=== PATIENT | female | born 1975 | race Caucasian/White ===

== ENCOUNTER → 2017-06-22 | Outpatient (CLI) | payer BC, OTHER ==
[~2017-06-22] MED LIST: None at this Time
[2017-06-22 09:06] LABS: HEMATOCRIT 47.2 % (34.6-47.8); HEMOGLOBIN 16.4 g/dL (11.7-16.4); WHITE BLOOD COUNT 7.6 x10^3/uL (3.4-10)
== END | disposition home or self-care (01) ==
LOC: STAR 08:03
PROVIDERS: ATTEND Specialist
DX: N94.5 Secondary dysmenorrhea (principal); Z80.49 Family history of malignant neoplasm of other genital organs
CPT/HCPCS: 36415; 84703; 85025

== ENCOUNTER 2017-06-28 05:41 | Day surgery (SDC) | payer BC, OTHER ==
[~2017-06-28] VITALS: Ht 170.2 cm; Wt 65.8 kg
[2017-06-28] MEDS ORDERED: LACTATED RINGERS 1,000 ML IV SCH (06:23)
[2017-06-28 06:25] VITALS: BP 114/78
[2017-06-28] MEDS ORDERED: LIDOCAINE 1%, 2ML SQ PRN (06:30)
[2017-06-28 06:31] LABS: HCG UR LOT HCG706132
[2017-06-28 06:45] LABS: HCG UR OBC PASS
[2017-06-28] MEDS ORDERED: BUPIVACAINE/PF 0.25% ONE (07:02)
[2017-06-28] MEDS ORDERED: ACETAMINOPHEN 500 MG TABLET ONE (07:14)
[2017-06-28] MEDS ORDERED: MIDAZOLAM 1 MG/ML, 2ML ONE ×2 (07:14→07:18)
[2017-06-28] MEDS ORDERED: SCOPOLAMINE PATCH, 1.5MG PATCH.TD72 TD ONE ×2 (07:14)
[2017-06-28] MEDS ORDERED: GABAPENTIN 300 MG CAPSULE ONE (07:14)
[2017-06-28] MEDS ORDERED: FLUORESCEIN SODIUM 500 MG/5 ML ONE (07:16)
[2017-06-28] MEDS ORDERED: ONDANSETRON 2MG/ML, 2ML ONE (07:24)
[2017-06-28] MEDS ORDERED: CEFAZOLIN 1,000 MG ONE (07:24)
[2017-06-28] MEDS ORDERED: FENTANYL PF 250 MCG/5ML ONE (07:24)
[2017-06-28] MEDS ORDERED: NEOSTIGMINE 1 MG/ML, 10ML ONE (07:24)
[2017-06-28] MEDS ORDERED: SUCCINYLCHOLINE 20 MG/ML, 10ML ONE (07:24)
[2017-06-28] MEDS ORDERED: PROPOFOL 10 MG/ML, 20ML ONE (07:24)
[2017-06-28] MEDS ORDERED: GLYCOPYRROLATE 0.2MG/1ML, 5ML ONE (07:24)
[2017-06-28] MEDS ORDERED: ROCURONIUM 10 MG/ML,10ML ONE (07:24)
[2017-06-28] MEDS ORDERED: KETOROLAC 30 MG/1 ML ONE (07:24)
[2017-06-28] MEDS ORDERED: DEXAMETHASONE 4 MG/ML, 1ML ONE (07:24)
[2017-06-28] MEDS ORDERED: EPHEDRINE 50 MG/ML, 1ML ONE (07:24)
[2017-06-28] MEDS ORDERED: LIDOCAINE GEL 2%, 5ML ONE (07:25)
[2017-06-28] MEDS ORDERED: MIDAZOLAM 1 MG/ML, 2ML IV PRN (08:00)
[2017-06-28] MEDS ORDERED: PROMETHAZINE 25 MG/ML, 1ML IV PRN (08:00)
[2017-06-28] MEDS ORDERED: hydrALAzine 20 MG/ML, 1ML IV PRN (08:00)
[2017-06-28] MEDS ORDERED: DIAZEPAM 5 MG/ML, 2ML IVPush PRN (08:00)
[2017-06-28] MEDS ORDERED: ALBUTEROL/IPRATROPIUM 2.5MG/0.5MG, 3 ML NPPB PRN (08:00)
[2017-06-28] MEDS ORDERED: LORazepam 2 MG/ML, 1ML IVPush PRN (08:00)
[2017-06-28] MEDS ORDERED: OXYcodone 5 MG/5 ML ORAL.SOL UDC PO PRN (08:00)
[2017-06-28] MEDS ORDERED: LABETALOL 5MG/ML, 20ML IV PRN (08:00)
[2017-06-28] MEDS ORDERED: ONDANSETRON 2MG/ML, 2ML IVPush PRN (08:00)
[2017-06-28] MEDS ORDERED: FENTANYL PF 100 MCG/2ML IV PRN (08:00)
[2017-06-28] MEDS ORDERED: CEFOTETAN PMX 2GM/50ML 50 ML ONE (08:05)
[2017-06-28] MEDS ORDERED: PROPOFOL 50 ML ONE (08:11)
[2017-06-28] MEDS ORDERED: LIDOCAINE-MPF 2% ,5ML ONE ×2 (08:12)
[2017-06-28] MEDS ORDERED: HYDROmorphone 1 MG/ML, 1ML ONE (08:58)
[2017-06-28] MEDS: MEPERIDINE/PF 25MG/0.5ML IVPush PRN ×2 (09:35→09:54)
[2017-06-28] MEDS ORDERED: MEPERIDINE/PF 50 MG/ML ONE (09:49)
[2017-06-28] MEDS ORDERED: OXYcodone 5 MG/5 ML ORAL.SOL UDC ONE (09:49)
[2017-06-28] MEDS ORDERED: FENTANYL PF 100 MCG/2ML ONE (09:49)
[2017-06-28] MEDS ORDERED: LABETALOL 5MG/ML, 20ML ONE (10:20)
[2017-06-28] MEDS ORDERED: HYDROmorphone 2 MG/ML, 1ML ONE (10:25)
[2017-06-28] MEDS: HYDROmorphone 1 MG/ML, 1ML IV PRN ×2 (10:28→10:59)
[2017-06-28] MEDS ORDERED: OXYcodone/APAP 5/325MG TABLET ONE (14:11)
[2017-06-28] MEDS ORDERED: OXYcodone/APAP 5/325MG TABLET PO PRN (14:30)
== END 2017-06-28 14:50 ==
LOC: OUT 05:41
PROVIDERS: ATTEND Specialist
DX: N94.6 Dysmenorrhea, unspecified (principal); N92.0 Excessive and frequent menstruation with regular cycle; Z85.3 Personal history of malignant neoplasm of breast; Z80.3 Family history of malignant neoplasm of breast; Z72.89 Other problems related to lifestyle
CPT/HCPCS: 52000; 58571; 81025; 87086; 88307; J0330; J1100; J1170; J1885; J2175; J2405; J2704; J2710; J3010; J3490; J7120; S0074; S2900; J0690; J2250

== ENCOUNTER → 2018-07-05 | Outpatient (CLI) | payer OTHER | END | disposition home or self-care (01) | LOC: CFH 12:31 | PROVIDERS: ATTEND Orthopaedic Surgery | DX: Z12.31 Encounter for screening mammogram for malignant neoplasm of breast (principal); S52.532D Colles' fracture of left radius, subsequent encounter for closed fracture with routine healing; X58.XXXD Exposure to other specified factors, subsequent encounter | CPT/HCPCS: 77063; 77067 ==

== ENCOUNTER 2019-07-09 10:03 | Outpatient (CLI) | payer OTHER | END 2019-07-09 23:59 | disposition home or self-care (01) | LOC: CFH 10:03 | PROVIDERS: ATTEND Specialist | DX: Z12.31 Encounter for screening mammogram for malignant neoplasm of breast (principal); N64.89 Other specified disorders of breast; N63.41 Unspecified lump in right breast, subareolar | CPT/HCPCS: 77063; 77067 ==